=== PATIENT | female | born 1970 | race Caucasian/White ===

== ENCOUNTER 2018-07-25 13:16 | Emergency (ER) | payer MEDICAID, OTHER ==
[~2018-07-25] VITALS: Ht 160 cm; Wt 95.0 kg
[~2018-07-25 13:16] MED LIST: BACI28.34 TOP
[2018-07-25 13:27] VITALS: Ht 160 cm; Wt 95.0 kg
--- NOTE | 2018-07-25 17:48 | ERD ---
ER Documentation Chief Complaint Chief Complaint pt is bib self with c/o left arm/leg/back and abd pain since last night, HPI This is a 48-year-old female with a past medical history of cholecystitis status post cholecystectomy who is presenting for multiple complaints. The patient endorses 1-2 weeks of lower abdominal pain, dysuria with increased frequency and urgency. The patient was concerned that this could be related to . She does not endorse any flank pain. She also reports several days of nasal congestion with a congested but nonproductive cough. The patient also endorses feeling generally unwell. She has not had any fever or chills at home. She does endorse nausea without vomiting. The patient denies changes to bowel movements. The patient does not have constipation or diarrhea. She does not endorse any black or bloody or tarry stool. Last night, the patient reports having muscle spasms, pain and a tingling sensation to the left face arm and leg. They are transient in nature. She does not endorse any sensory deficits. She does not endorse any strength deficits. She has not had any issues with ambulation. Her coordination is normal. She denies any facial droop or dysarthria or aphasia. She does not endorse any headache or vision changes. The patient currently endorses improvement of these symptoms. The patient does not endorse neck or back pain. The patient denies lightheade dness or dizziness. The patient has had no chest pain or trouble breathing. ROS All systems reviewed and are negative except as per history of present illness. Medications Home Meds Discontinued Scripts Bacitracin* (Bacitracin Zinc Oint*) 28.35 Gm Oint, 1 APPLIC TOP BID, #1 TUB APPLI TO Prov:CARLOS FERMIN PA-C 02/07/15 Allergies Allergies: Coded Allergies: acetaminophen (Verified Adverse Reaction, Unknown, 07/25/18) pheniramine (Verified Adverse Reaction, Unknown, 07/25/18) phenylephrine (Verified Adverse Reaction, Unknown, 07/25/18) PMhx/Soc History of Surgery: Yes (GALL BLADDER REMOVAL) Hx Neurological Disorder: No Hx Respiratory Disorders: No Hx Cardiac Disorders: No Hx Psychiatric Problems: No Hx Miscellaneous Medical Probl: No Hx Alcohol Use: No Hx Substance Use: No Hx Tobacco Use: No Smoking Status: Never smoker FmHx Family History: No diabetes Physical Exam Vitals Vital Signs Date Temp Pulse Resp B/P (MAP) Pulse Ox O2 O2 Flow FiO2 Time Delivery Rate 07/25/18 78 16 119/100 100 Room Air 14:10 (106) 07/25/18 98.3 75 18 139/72 98 13:27 (94) Physical Exam Const: No apparent distress, well-developed, well-nourished Head: Normocephalic, Atraumatic Eyes: Normal Conjunctiva. Extraocular movements intact. Pupils equal, round and reactive to light ENT: Normal External Ears, Nose and Mouth. Nasal congestion is evident. Neck: Full range of motion. No meningismus. Resp: Clear to auscultation bilaterally, No wheezes, rales or rhonchi Cardio: Regular rate and rhythm. No murmurs, rubs or gallops Abd: Soft, non distended. Suprapubic abdominal tenderness. Normal bowel sounds Skin: No petechiae or rashes Back: No midline tenderness. No CVA tenderness Ext: No cyanosis, or edema Neur: Awake and alert, oriented 4. Cranial nerves intact. No facial droop. Normal strength, sensation and coordination. Psych: Normal Mood and Affect Result Diagram: 07/25/18 1419 07/25/18 1419 Results 24 hrs Laboratory Tests Test 07/25/18 14:19 White Blood Count 8.8 10^3/ul Red Blood Count 5.06 10^6/ul Hemoglobin 13.3 g/dl Hematocrit 42.0 % Mean Corpuscular Volume 83.0 fl Mean Corpuscular Hemoglobin 26.3 pg Mean Corpuscular Hemoglobin Concent 31.7 g/dl Red Cell Distribution Width 13.7 % Platelet Count 349 10^3/UL Mean Platelet Volume 9.9 fl Immature Granulocytes % 0.500 % Neutrophils % 60.6 % Lymphocytes % 30.6 % Monocytes % 6.5 % Eosinophils % 1.2 % Basophils % 0.6 % Nucleated Red Blood Cells % 0.0 /100WBC Immature Granulocytes # 0.040 10^3/ul Neutrophils # 5.4 10^3/ul Lymphocytes # 2.7 10^3/ul Monocytes # 0.6 10^3/ul Eosinophils # 0.1 10^3/ul Basophils # 0.1 10^3/ul Nucleated Red Blood Cells # 0.0 10^3/ul Urine Color RED Urine Clarity CLOUDY Urine pH 6.0 Urine Specific [place] 1.016 Urine Ketones NEGATIVE mg/dL Urine Nitrite NEGATIVE mg/dL Urine Bilirubin NEGATIVE mg/dL Urine Urobilinogen NEGATIVE mg/dL Urine Leukocyte Esterase NEGATIVE Davi/ul Urine Microscopic RBC > 182 /HPF Urine Microscopic WBC 99 /HPF Urine Squamous Epithelial Cells FEW /HPF Urine Bacteria MODERATE /HPF Urine Hemoglobin 3+ mg/dL Urine Glucose NEGATIVE mg/dL Urine Total Protein 1+ mg/dl Urine Test NEGATIVE Sodium Level 141 mmol/L Potassium Level 4.0 mmol/L Chloride Level 105 mmol/L Carbon Dioxide Level 27 mmol/L Anion Gap 9 Blood Urea Nitrogen 12 mg/dl Creatinine 0.70 mg/dl Est Glomerular Filtrat Rate mL/min > 60 mL/min Glucose Level 101 mg/dl Calcium Level 9.4 mg/dl Total Bilirubin 0.4 mg/dl Direct Bilirubin 0.00 mg/dl Indirect Bilirubin 0.4 mg/dl Aspartate Amino Transf (AST/SGOT) 35 IU/L Alanine Aminotransferase (ALT/SGPT) 30 IU/L Alkaline Phosphatase 77 IU/L Total Protein 7.9 g/dl Albumin 4.5 g/dl Globulin 3.40 g/dl Albumin/Globulin Ratio 1.32 Lipase 114 U/L Procedures/MDM MDM The patient's presentation warrants further investigation. Previous medical records, if available, were reviewed. LABS The patient's laboratory testing was obtained and reviewed. No emergent treatment was required unless described below. CBC: No E/o of systemic infection or severe anemia or thrombocytopenia Chemistry: No E/o severe acidosis or alkalosis or renal failure or liver disease or diabetic ketoacidosis Lipase: No E/o pancreatitis Urine: E/o acute infection with hematuria IMAGING Imaging and Radiology interpretation reviewed. CXR FINDINGS: The trachea is midline. The cardiac silhouette and pulmonary vascularity are within normal limits. The lungs are clear. The costophrenic angles are sharp. IMPRESSION: No evidence of acute cardiopulmonary disease. Electronically viewed and signed by Physician Avery on 07/25/2018 15:16 CT Head FINDINGS: There is no intracranial hemorrhage, mass effect, or midline shift. No extra-axial fluid collection is seen. The ventricles and sulci are normal in size and configuration. The density of the brain is normal, and the barry white matter differentiation appears well-preserved. The visualized paranasal sinuses and osseous structures are grossly unremarkable. IMPRESSION: 1. No evidence of acute intracranial pathology. 2. The brain is normal in appearance. Electronically viewed and signed by .Loyda Summers MD, on 07/25/2018 16:41 TREATMENT/DISPOSITION The patient presents for multiple complaints. The patient has symptoms consistent with an upper respiratory infection. This is likely to be self- limited. I do not see any evidence of pneumonia. I have low suspicion for sinusitis. The patient's abdominal pain is likely associated with a urinary tract infection. The patient does not have any flank tenderness. The patient's symptoms are not consistent with nephrolithiasis. I have low suspicion for pyelonephritis. The patient does not have any evidence of peritonitis. The patient does not have clinical symptoms concerning for mesenteric ischemia or ischemic colitis. The patient does not have right upper quadrant tenderness, and I have low suspicion for gallstones, cholecystitis or biliary colic. The p atient does not have any epigastric pain. I have low suspicion for gastritis, PUD or GERD. The patient does not have left upper quadrant tenderness. I have low suspicion for pancreatitis. The patient does not have any right lower quadrant tenderness, or periumbilical tenderness. I have low suspicion for appendicitis. The patient does not have any left lower quadrant tenderness, and I have low suspicion for diverticulosis or diverticulitis. The patient does not have any palpable pulsatile mass or severe abdominal pain radiating to the back. I have low suspicion for aortic aneurysm, dissection or rupture. The patient also reports paresthesias and cramping to the left leg and arm. She also endorsed tingling sensation to the face. I do not see evidence of Kilgore's palsy. Objectively, the patient has no neuro deficits. Her NIH stroke scale is 0. The patient CT is unremarkable. The patient has no cardiovascular risk factors. I have very low suspicion for cerebral ischemia or intracranial hemorrhage. Upon reevaluation of the patient, symptoms have improved. No emergent diagnoses were identified. At this time, I feel that the patient stable for discharge. The patient was instructed to follow-up with a primary care physician in 1-3 days. The patient will be given strict precautions with which to return to the emergency department. Prescriptions: Ibuprofen, Keflex The patient's blood pressure was elevated at greater than 120/80 while in the emergency department. The patient was otherwise stable with no evidence of hypertensive urgency or emergency. The patient does not require admission for blood pressure control. I have discussed with the patient the risks of hypert ension. I have instructed the patient to return to the ER for any new or worsening symptoms including chest pain, shortness of breath, headache, blurred vision, confusion, nausea, vomiting or LOC. I have advised the patient to follow up with the primary care physician for outpatient monitoring and treatment for hypertension in 1-3 days. Disclaimer: Inadvertent spelling and grammatical errors are likely due to EHR/dictation software use and do not reflect on the overall quality of patient care. Note that the electronic time recorded on this note does not necessarily reflect the actual time of the patient encounter. Departure Diagnosis: Primary Impression: Urinary tract infection Urinary tract infection type: acute cystitis Hematuria presence: with hematuria Qualified Codes: N30.01 - Acute cystitis with hematuria Additional Impressions: Dysuria Suprapubic pain Nausea Paresthesias URI (upper respiratory infection) URI type: unspecified URI Qualified Codes: J06.9 - Acute upper respiratory infection, unspecified Nasal congestion Condition: Stable TYE JOYA MD Jul 25, 2018 17:40
[2018-07-25] MEDS ORDERED: IBUP-1542 PO (17:50)
[2018-07-25] MEDS ORDERED: CEPH-443 PO (17:50)
[2018-07-25 17:56] VITALS: BP 114/74; PULSE 70; RESP 15
== END 2018-07-25 17:58 | disposition home or self-care (01) ==
LOC: E/R 13:16
DX: N30.01 Acute cystitis with hematuria (principal); R20.2 Paresthesia of skin; J06.9 Acute upper respiratory infection, unspecified
CPT/HCPCS: 36415; 70450; 71045; 80053; 81001; 83690; 84703; 85025; Z7502

== ENCOUNTER 2018-11-28 13:40 | Emergency (ER) | payer OTHER ==
[~2018-11-28] VITALS: Ht 157.5 cm; Wt 101.1 kg
[~2018-11-28 13:40] MED LIST changes: -BACI28.34 TOP; +CEPH-443 PO; +IBUP-1542 PO
[2018-11-28 13:42] VITALS: BP 143/70; PULSE 85; RESP 16; Ht 157.5 cm; Wt 101.1 kg
--- NOTE | 2018-11-28 14:48 | ERD ---
ER Documentation Chief Complaint Chief Complaint vag bleed with cramps , onset today , lmp 10/04/18 HPI 48-year-old female G8, P5 Ab2 presenting with vaginal bleeding that started today with small clots and lower abdominal cramping, worse on the left side. Her pain is a 5 out of 10, nonradiating, intermittent, with no alleviating or exacerbating factors. Last menstrual period was on October 04, 2018. She has not had an ultrasound yet or seen in OB. No fevers or chills. No dysuria. No other complaints. ROS All systems reviewed and are negative except as per history of present illness. Medications Home Meds Active Scripts Nitrofurantoin Monohyd Macrocr* (Macrobid*) 100 Mg Capsr, 100 MG PO BID for 5 Days, CAP Prov:RENETTA GARCIA MD 11/28/18 Cephalexin* (Keflex*) 500 Mg Capsule, 500 MG PO BID for 10 Days, CAP Prov:TYE JOYA MD 07/25/18 Ibuprofen* (Motrin*) 600 Mg Tab, 600 MG PO Q6H PRN for PAIN AND/OR INFLAMMATION, #30 TAB Prov:TYE JOYA MD 07/25/18 Allergies Allergies: Coded Allergies: acetaminophen (Verified Adverse Reaction, Unknown, 07/25/18) pheniramine (Verified Adverse Reaction, Unknown, 07/25/18) phenylephrine (Verified Adverse Reaction, Unknown, 07/25/18) PMhx/Soc History of Surgery: Yes (, with last , cholecystectomy) Hx Neurological Disorder: No Hx Respiratory Disorders: No Hx Cardiac Disorders: No Hx Psychiatric Problems: No Hx Miscellaneous Medical Probl: Yes ("Mild stroke" on aspirin) Hx Alcohol Use: No Hx Substance Use: No Hx Tobacco Use: No Smoking Status: Never smoker FmHx Family History: No diabetes Physical Exam Vitals Vital Signs Date Temp Pulse Resp B/P (MAP) Pulse Ox O2 O2 Flow FiO2 Time Delivery Rate 11/28/18 98.0 85 16 143/70 98 13:42 (94) Physical Exam Const: No acute distress Head: Atraumatic Eyes: Normal Conjunctiva ENT: Normal External Ears, Nose and Mouth. Neck: Full range of motion. Resp: Clear to auscultation bilaterally Cardio: Regular rate and rhythm, no murmurs Abd: Soft, protuberant, obese, mild tenderness to palpation in the suprapubic area. No rebound or guarding. Normal bowel sounds Skin: No petechiae or rashes Back: No midline or flank tenderness Ext: No cyanosis, or edema Neur: Awake and alert Psych: Normal Mood and Affect Result Diagram: 11/28/18 1440 Results 24 hrs Laboratory Tests Test 11/28/18 14:40 White Blood Count 8.8 10^3/ul Red Blood Count 4.67 10^6/ul Hemoglobin 12.3 g/dl Hematocrit 38.9 % Mean Corpuscular Volume 83.3 fl Mean Corpuscular Hemoglobin 26.3 pg Mean Corpuscular Hemoglobin Concent 31.6 g/dl Red Cell Distribution Width 13.8 % Platelet Count 293 10^3/UL Mean Platelet Volume 10.1 fl Immature Granulocytes % 0.300 % Neutrophils % 65.1 % Lymphocytes % 25.7 % Monocytes % 7.0 % Eosinophils % 1.4 % Basophils % 0.5 % Nucleated Red Blood Cells % 0.0 /100WBC Immature Granulocytes # 0.030 10^3/ul Neutrophils # 5.8 10^3/ul Lymphocytes # 2.3 10^3/ul Monocytes # 0.6 10^3/ul Eosinophils # 0.1 10^3/ul Basophils # 0.0 10^3/ul Nucleated Red Blood Cells # 0.0 10^3/ul Urine Color BE Urine Clarity CLOUDY Urine pH 6.0 Urine Specific [place] 1.024 Urine Ketones NEGATIVE mg/dL Urine Nitrite NEGATIVE mg/dL Urine Bilirubin NEGATIVE mg/dL Urine Urobilinogen NEGATIVE mg/dL Urine Leukocyte Esterase TRACE Davi/ul Urine Microscopic RBC > 182 /HPF Urine Microscopic WBC > 182 /HPF Urine Squamous Epithelial Cells FEW /HPF Urine Hemoglobin 3+ mg/dL Urine Glucose NEGATIVE mg/dL Urine Total Protein 2+ mg/dl Beta HCG, Quantitative 837.9 mIU/ml Procedures/MDM EMERGENT LABS AND DIAGNOSTIC STUDIES: Lab Results above were reviewed and interpreted by me. CBC: no anemia or evidence of infection Beta-hCG: In the 800s UA: Possible evidence of infection Radiology Results as interpreted by Radiology below were reviewed by Apoorva Garcia MD: Pelvic ultrasound: Gestational sac noted at 5 weeks 1 day, no pole or yolk sac seen. Initial Nursing notes reviewed. Previous Medical Records requested via the Electronic Health Record. EMERGENCY DEPARTMENT COURSE / MEDICAL DECISION MAKING: Patient is presenting with vaginal bleeding in early . There is no evidence of a viable intrauterine but it may be too early to tell. Doubt ectopic but this cannot be ruled out. I recommended repeat hCG in 2 days and a repeat ultrasound in 1 week. She has an appointment next week for an ultrasound already scheduled. Return precautions discussed. Discussed with patient that this may be an early normal IUP with first trimester bleeding, threatened AB, or active miscarriage. Importance of follow-up discussed. Patient agreeable with discharge plan. Provided her with the ultrasound report and blood test results. I also gave her a prescription for Macrobid for possible UTI seen on UA. Patient's blood pressure was elevated (>120/80) but appears stable without evidence of hypertensive emergency or urgency. The patient was counseled about the risks of hypertension and urged to pursue outpatient monitoring and therapy within a week with their primary care physician. Departure Diagnosis: Primary Impression: Vaginal bleeding in patient at less than 20 weeks gestation Additional Impressions: Threatened Urine white blood cells increased Condition: Stable RENETTA GARCIA MD Nov 28, 2018 14:48
[2018-11-28] MEDS ORDERED: NITR-58 PO (15:47)
== END 2018-11-28 16:04 | disposition home or self-care (01) ==
LOC: FTE 13:40
DX: O20.0 Threatened abortion (principal); R82.90 Unspecified abnormal findings in urine; Z3A.01 Less than 8 weeks gestation of pregnancy
CPT/HCPCS: 36415; 76801; 76817; 81001; 84702; 85025; 86900; 86901; Z7502